=== PATIENT | male | born 1935 | race Caucasian/White ===

== ENCOUNTER → 2017-01-26 | Day surgery (SDC) | payer MEDICARE, BC ==
[~2017-01-26] MED LIST: ARICEPT PO; ASPIRIN81 M2 PO; CARVEDILOL6.25 MG PO; FLOMAX0.4 M1; LISINOPRIL10 MG PO; NAMENDA XR28 MG PO; NAMENDA10 MG PO; NITROSTAT0.4 MG SL; VIT B12; VITAMIN B12-FO1 EACH PO; ZYPREXA PO
--- NOTE | ~2017-01-26 | OR ---
Unit #: [id number] #: [id number] Patient: ADRY TRIMBLE [id number] [address] [place], [place] [address] [id number] MR#: [id number] NAME: ADRY TRIMBLE ROOM: Date of Procedure: 01/26/2017 Admission Date: 01/26/2017 Surgeon: Chalo Ng Jr., M.D. : 1935 Attending Physician: Chalo Ng Jr., M.D. Primary Care Physician: Mack Tristan M.D. OPERATIVE REPORT INDICATIONS FOR PROCEDURE The patient is an 81-year-old white male, who has recently noted to have some anemia and checked and noted to have heme-positive stools. He has not noticed any rectal bleeding, melena, or other forms of GI bleeding, but it was felt he could have GI bleeding. He is brought in this time for upper and lower endoscopy. He has had no recent scopes. PREOPERATIVE DIAGNOSES Heme-positive stools with gastrointestinal bleeding. 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 No evidence of any stenosis. 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 On colonoscopy to the cecum, he was noted to have pandiverticulosis with only a fair prep. A small cecal polyp which was biopsied and some internal hemorrhoids. ANESTHESIA MAC anesthesia. PROCEDURE PERFORMED Flexible fiberoptic esophagogastroduodenoscopy with biopsies of the distal esophagus and flexible colonoscopy to the cecum with biopsy of a small cecal polyp. DESCRIPTION OF PROCEDURE The patient was positioned in Herbert position with left side down. After being given MAC anesthesia, the Olympus XQ scope was passed through the proximal esophagus. The entire esophagus was examined. Proximal two-thirds appeared normal. In the area of the GE junction, there was an irregular whitish tissue possibly on the basis of some occult malignancy. Several biopsies were taken from this without significant bleeding. There was no evidence of any stenosis. The scope was advanced through the GE junction through a small hiatal hernia into the cardia, fundic, and antral region of the stomach and retroflexed back up to the area of the cardia. There was a small hiatal hernia present. The stomach distended well without evidence of rigidity. No evidence of any gastric ulcer disease. The scope was then advanced down the prepyloric region through the pylorus and the duodenal bulb and down to the second portion of the duodenum. There was a tiny AVM in the second portion of the duodenum with no active bleeding and no evidence of any recent bleeding. The scope was then Unit #: [id number] #: [id number] Patient: ADRY TRIMBLE slowly removed. The patient repositioned for colonoscopy. Digital rectal examination was performed, which revealed no palpable mass or tenderness. No blood or stool in the rectal ampulla. Prostate was mildly enlarged at 1+. It was not nodular and benign by palpation. The Olympus colonoscope was advanced through the anal canal up the rectum and retroflexed down to the area of the anorectal region. There were some internal hemorrhoids present, which were not actively bleeding. The scope was then straightened and advanced up in the rectosigmoid, in the sigmoid and descending colon areas, where the multiple diverticula without evidence of diverticulitis. He has diverticula and areas were extremely large. The scope was then advanced around the splenic flexure and the transverse colon, around the hepatic flexure and ascending colon, down in the area of the cecum. The light from tip of the scope could be seen transilluminating through right lower quadrant abdominal wall area. Multiple attempts in advancing the scope up the distal ileum were unsuccessful. In the area of the cecum, there was a small adenomatous appearing polyp 2 to 3 mm in diameter. This was a flat linear polyp. Several biopsies were taken from this without significant bleeding. The scope was then slowly removed. There were no other polyps, no tumors, cancer, or AVMs. No evidence of any colitis or acute diverticulitis. There was pandiverticulosis though. The prep was only fair and small abnormality could have been missed. The scope was removed. The patient tolerated the procedure well and discharged in satisfactory condition. Dictated by... Chalo Ng Jr., M.D. JMB/danny TD: 01/26/2017 15:38 JOB #: [id number] OPERATIVE REPORT Page 1 of 1 X Chalo Ng MD X PROCEDURE OPERATIVE NOTE
== END | disposition home or self-care (01) ==
LOC: COPS 10:29
DX: D12.0 Benign neoplasm of cecum (principal); K21.0 Gastro-esophageal reflux disease with esophagitis; K57.30 Diverticulosis of large intestine without perforation or abscess without bleeding; K64.8 Other hemorrhoids; K22.8 Other specified diseases of esophagus; K44.9 Diaphragmatic hernia without obstruction or gangrene; K31.819 Angiodysplasia of stomach and duodenum without bleeding; I25.2 Old myocardial infarction; I10 Essential (primary) hypertension; J44.9 Chronic obstructive pulmonary disease, unspecified; I25.10 Atherosclerotic heart disease of native coronary artery without angina pectoris; I42.9 Cardiomyopathy, unspecified; N40.0 Benign prostatic hyperplasia without lower urinary tract symptoms; E78.5 Hyperlipidemia, unspecified; K59.00 Constipation, unspecified; Z86.010 Personal history of colon polyps; Z87.891 Personal history of nicotine dependence; Z80.0 Family history of malignant neoplasm of digestive organs; Z79.82 Long term (current) use of aspirin; Z79.899 Other long term (current) drug therapy; Z98.41 Cataract extraction status, right eye; Z98.42 Cataract extraction status, left eye; Z98.890 Other specified postprocedural states
CPT/HCPCS: 88305; 88312